=== PATIENT | female | born 1950 | race Caucasian/White ===

== ENCOUNTER → 2018-03-23 | Outpatient (CLI) | payer MEDICARE, OTHER ==
--- NOTE | 2018-03-24 13:20 | SLEEP ---
[address] [address] SLEEP STUDY REPORT Name: JINNY CROOKS Room: [facility]#: [id number] Admission: 03/23/18 Attend Phys: Jean Oh DO Discharge: Date of : 48 Report #: [id number] THIS REPORT FOR: //name// CC: Jean Oh DO This study has been reviewed in its entirety by a board certified sleep specialist DATE OF SERVICE: 03/23/2018 ATTENDING PHYSICIAN: Dr. Jean Oh. The patient is 67 years old who weighs 251 pounds and is 71 inches tall with a BMI of 35. The patient's Augusta score was 8. The patient has a history of obstructive sleep apnea and is a current CPAP user. The patient's last study was 10 years ago. The patient was referred for requalification on CPAP and assess the severity of sleep apnea. During the night of study, the patient spent 450 minutes in bed and slept for 255 minutes with a low sleep efficiency of 56.6%. Sleep latency was 59.6 minutes with a REM latency of 187 minutes. Overall, sleep architecture showed normal stage I and stage 2 sleep, increased N3 sleep and normal REM sleep. During the initial diagnostic portion of the study, the patient spent 144 minutes, but slept for 41 minutes. During that time, the patient had 4 obstructive apneas, no mixed or central apneas and 27 hypopneas. The patient's apnea-hypopnea index during the diagnostic portion of the study was 45 per hour. REM sleep was not observed. Supine AHI was 11.2 per hour. EKG monitoring revealed an average heart rate of 86 beats per minute with a maximum of 94 beats per minute. No sustained arrhythmias observed. No clinically significant PLMS observed. Nocturnal oximetry study revealed an average oxygen saturation of 88% with the lowest of 85%. 40 minutes were spent at an oxygen saturation less than 90%. The patient met the criteria for CPAP initiation. It was started at 9 cm water and titrated up to 16 cm water. At the final pressure, the patient slept for 81.9 minutes. The patient had long REM sleep. The patient had supine sleep throughout. The patient's AHI was reduced to 2.2 per hour and oxygen saturation remained above 88% with one spot desaturation of 85%. IMPRESSION: 1. Severe sleep apnea-hypopnea syndrome at an AHI of 45 [place] [address] SLEEP STUDY REPORT Name: JINNY CROOKS Ghazal Room: [facility]#: [id number] Admission: 03/23/18 Attend Phys: Jean Oh DO Discharge: Date of : 48 Report #: [id number] was not seen during the diagnostic portion of the study, which could have underestimated the AHI. 2. Nocturnal hypoxia secondary to obstructive sleep apnea, but resolved with CPAP. 3. No clinically significant periodic limb movements. RECOMMENDATIONS: 1. CPAP at 16 cm water completely eliminated the patient's sleep apnea and should be used on a nightly basis. 2. Follow up in 4-6 weeks to assess compliance with CPAP and to document clinical improvement. 3. Weight loss was strongly advised. 4. Avoid [employer]LECT[employer] depressants. 5. Cautioned regarding driving until symptoms of sleep apnea resolve with the use of CPAP. <ELECTRONICALLY SIGNED> By: Temo Yo MD 03/24/18 1320 [id number] Yo MD /nt
== END ==
LOC: M.SLEEPLAB 19:57
DX: G47.33 Obstructive sleep apnea (adult) (pediatric) (principal); R09.02 Hypoxemia; I10 Essential (primary) hypertension; E78.2 Mixed hyperlipidemia; E11.42 Type 2 diabetes mellitus with diabetic polyneuropathy

== ENCOUNTER → 2018-07-27 | Outpatient (CLI) | payer MEDICARE, OTHER ==
[2018-07-27 07:31] LABS: POTASSIUM 4.3 mmol/L (3.5-5.1)
== END ==
LOC: M.LAB 04:31
PROVIDERS: Student in an Organized Health Care Education/Training Program
DX: E11.9 Type 2 diabetes mellitus without complications (principal); E87.6 Hypokalemia

== ENCOUNTER → 2020-08-23 | Outpatient (CLI) | payer MEDICARE, OTHER | LOC: M.ULTRA 10:30 | PROVIDERS: ATTEND Family Medicine | DX: M79.89 Other specified soft tissue disorders (principal); M79.604 Pain in right leg ==